=== PATIENT | female | born 1930 | race Caucasian/White ===

== ENCOUNTER → 2017-03-12 | Outpatient (CLI) | payer MEDICARE, BC ==
--- NOTE | 2017-03-12 17:52 | RADRPT ---
PROCEDURE: Left knee radiographs. CLINICAL INDICATION: Left knee pain. TECHNIQUE: Four views. Weight bearing. Frontal, lateral, oblique, and patellar view. COMPARISON: 02/13/2013. FINDINGS: There is no fracture or dislocation. The soft tissues are normal. There are degenerative changes with osteophytes arising from all 3 joint compartment margins. There is lateral joint compartment narrowing, subarticular sclerosis, and deformity, worse than seen prev iously. There is no lytic or blastic lesion. There is no radiopaque foreign body. IMPRESSION: 1. 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 RPTAT: QQ .Karlos Aguilar MD, MD Date Time Electronically viewed and signed by .Karlos Aguilar MD, MD on 03/12/2017 17:51 .R/
== END | disposition home or self-care (01) ==
LOC: HKI 14:29
PROVIDERS: ATTEND Orthopaedic Surgery
DX: M17.12 Unilateral primary osteoarthritis, left knee (principal); M25.562 Pain in left knee
CPT/HCPCS: 73564; G0463

== ENCOUNTER → 2017-08-05 | Outpatient (CLI) | payer MEDICARE, BC ==
--- NOTE | 2017-08-05 21:20 | HKNOTE ---
DATE OF SERVICE: 08/05/2017 MAIN COMPLAINT: Right hip pain. HISTORY OF PRESENT ILLNESS: This is an 87-year-old female, who is complaining of right hip pain for the last several months. The pain is in the back of the buttock. She denies any history of trauma. She denies any difficulty ambulating. She does not use any assistive devices. She denies any numbness or tingling. She states that the pain started suddenly. It has been improving. She does not require any pain medications. She has no other complaints. PAST MEDICAL HISTORY: Hypertension and hyperlipidemia. MEDICATIONS: Zocor, Maxzide. PAST SURGICAL HISTORY: Colon cancer resection and abdominal adhesion surgery. SOCIAL HISTORY: Denies tobacco, alcohol, or drug use. FAMILY HISTORY: Noncontributory. ALLERGIES: NO KNOWN DRUG ALLERGIES. PHYSICAL EXAMINATION: EXTREMITIES: Gait nonantalgic gait. Right hip is 0-90 degrees of flexion, 20 degree internal rotation, 50 degrees of external rotation. Negative Alireza's. Negative straight leg raise. 5/5 hamstrings, quadriceps, tibialis anterior, gastroc soleus, extensor hallucis longus, and peroneals. Palpable dorsalis pedis pulse. Had positive Freiberg test . Positive Fadir test. DIAGNOSTIC DATA: Pelvis x-rays: No fracture or dislocation is identified. No degenerative joint disease. X-rays right hip: Two views of the right hip did not demonstrate any fracture or dislocations. No degenerative joint disease. IMPRESSION: An 87-year-old female with right hip piriformis syndrome. PLAN: She will be referred to physical therapy. She can take ibuprofen as needed. She will follow up with me as needed in the future. Dictated By: Monse Hathaway MD /atti/yesenia /Document#: [id number]
--- NOTE | 2017-08-06 11:30 | RADRPT ---
PROCEDURE: XR Pelvis and right Hip. CLINICAL INDICATION: Pelvic pain. Right hip pain. TECHNIQUE: 3 views of the pelvis and right hip are available for review. COMPARISON: No prior studies are available for comparison. FINDINGS: The osseous structures, articular spaces, and surrounding soft tissues of the pelvis are unremarkabl e. No acute fracture or dislocation is seen. No radiopaque foreign body is identified. The osseous mineralization is normal. The sacroiliac joints, as visualized, are grossly unremarkable. Minimal n arrowing of the right hip joint space is seen with minimal osteophyte formation along the superolate ral margin of the right acetabulum. Benign phleboliths are seen in the right lower pelvis. IMPRESSION: 1. 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 2. No acute fracture or dislocation is identified. RPTAT: HMJB .Anton Lopez MD, MD Date Time Electronically viewed and signed by .Anton Lopez MD, on 08/06/2017 11:30 .B/
== END | disposition home or self-care (01) ==
LOC: HKI 16:14
PROVIDERS: ATTEND Orthopaedic Surgery Adult Reconstructive Orthopaedic Surgery
DX: G57.01 Lesion of sciatic nerve, right lower limb (principal); M25.551 Pain in right hip; Z85.038 Personal history of other malignant neoplasm of large intestine
CPT/HCPCS: 73502; G0463